=== PATIENT | female | born 1965 | race Caucasian/White ===

== ENCOUNTER 2017-11-30 20:33 | Observation (INO) ==
[2017-12-01] MEDS ORDERED: Sod Chloride 0.9% Inj 1,000 ML IV.SIG ONE ×2 (00:48→00:49)
[2017-12-01] MEDS ORDERED: Morphine Inj 4 MG/ML Vial IV.PUSH ONE (00:48)
--- NOTE | 2017-12-01 00:54 | ED ---
HPI General Chief Complaint: Abdominal Pain Stated Complaint: side pain Time Seen by Provider: 12/01/17 00:45 History of Present Illness HPI narrative: 52-year-old female presents to the emergency department for complaint of right upper quadrant and right flank pain for the past 2 days with dysuria fever chills nausea vomiting and poor oral intake. Patient is approximately one-month status post laparoscopic appendectomy. Patient has history of hypertension. No hemoptysis no hematemesis no melena no hematochezia no diarrhea. No vaginal discharge. Patient is unable to identify exacerbating or alleviating factors patient rates discomfort as moderate to severe with palpation and percussion. After IV fluids and Reglan patient continues to complain of severe nausea unable to tolerate oral hydration oral medication requiring IV potassium replacement call placed to medicine service for observation and also treated for UTI dehydration and intractable nausea/vomiting with hypokalemia discussed with Dr Malave Related Data Home Medications Medication Instructions Recorded Confirmed clonidine HCl 0.2 mg PO BID 11/30/17 11/30/17 gabapentin 600 mg PO TID 11/30/17 11/30/17 lisinopril 40 mg PO DAILY 11/30/17 11/30/17 metoprolol tartrate 20 mg PO BID 11/30/17 11/30/17 sertraline [Zoloft] 50 mg PO DAILY 11/30/17 11/30/17 Allergies Allergy/AdvReac Type Severity Reaction Status Date / Time Penicillins Allergy Severe Edema Verified 11/30/17 21:09 Review of Systems Except as stated in HPI: all other systems reviewed are negative PMFSH Medical History Medical History Appendicitis (Acute) delivery delivered (Acute) HTN (hypertension) (Acute) MRSA (methicillin resistant Staphylococcus aureus) (Acute) Skin cancer (melanoma) (Acute) Surgical History Surgical History History of appendectomy (Acute) Social History Social History Substance History: No History of Abuse Second Hand Smoke Exposure: Yes Smoking Status: Current every day smoker Tobacco Type: Cigarettes How Often Do You Have a Drink Containing Alcohol: Monthly or less Recent Travel in [facility] within the Last 8 Weeks: No Recent Out of Country Travel within the Last 8 Weeks: No Exam Narrative Exam Narrative: GENERAL: Well-nourished, well-developed patient. SKIN: Focused skin assessment warm/dry. HEAD: Normocephalic. EYES: No scleral icterus. No injection or drainage. NECK: Supple, trachea midline. No JVD or lymphadenopathy. CARDIOVASCULAR: Regular rate and rhythm without murmurs, gallops, or rubs. RESPIRATORY: Breath sounds equal bilaterally. No accessory muscle use. GASTROINTESTINAL: Abdomen soft, non-tender, nondistended. MUSCULOSKELETAL: No cyanosis, or edema. BACK: Nontender without obvious deformity. Right-sided CVA tenderness. Course Initial Documented Vital Signs Temperature 98.6 F 11/30/17 21:06 Pulse Rate 126 H 11/30/17 21:06 Respiratory Rate 14 11/30/17 21:06 Blood Pressure 134/83 11/30/17 21:06 Pulse Oximetry 97 11/30/17 21:06 Last Documented Vital Signs Temperature 96.7 F L 12/01/17 16:00 Pulse Rate 66 12/01/17 16:00 Respiratory Rate 20 12/01/17 16:00 Blood Pressure 102/63 12/01/17 16:00 Pulse Oximetry 99 12/01/17 16:00 Medical Decision Making MDM Narrative Medical decision making narrative: 52-year-old female with flank pain and right upper quadrant pain for the past 2 days with associated nausea and vomiting no hematemesis no coffee-ground emesis and no diarrhea or change in bowel habit with subjective fever and chills presents with tachycardia and reproducible flank tenderness and complaint of dysuria concerning for pyelonephritis; IV access obtained specimens collected and sent for resulting patient given normal saline bolus along with morphine sulfate 2 mg IV and Reglan 10 mg IV will be treated for sepsis workup with blood cultures 2 and lactic acid patient will be reassessed and Differential Diagnosis Differential Diagnosis: Flank pain, right upper quadrant abdominal pain, pyelonephritis, UTI, renal colic, cholecystitis, pancreatitis, gastritis, colitis Lab Data Result diagrams: 12/01/17 01:15 12/01/17 01:15 Lab Results 12/01/17 12/01/17 12/01/17 Range/Units 01:15 01:15 01:15 WBC 9.8 (4.0-11.0) th/mm3 RBC 5.33 H (4.00-5.30) mil/mm3 Hgb 16.5 H (11.6-15.3) gm/dL Hct 47.2 H (35.0-46.0) % MCV 88.5 (80.0-100.0) fL MCH 30.9 (27.0-34.0) pg MCHC 34.9 (32.0-36.0) % RDW 14.0 (11.6-17.2) % Plt Count 428 (150-450) th/mm3 MPV 8.9 (7.0-11.0) fL Neut % (Auto) 54.9 (16.0-70.0) % Lymph % (Auto) 32.6 (9.0-44.0) % [place] % (Auto) 10.9 H (0.0-8.0) % Eos % (Auto) 1.1 (0.0-4.0) % Baso % (Auto) 0.5 (0.0-2.0) % Neut # (Auto) 5.4 (1.8-7.7) th/mm3 Lymph # (Auto) 3.2 (1.0-4.8) th/mm3 [place] # (Auto) 1.1 H (0.0-0.9) th/mm3 Eos # (Auto) 0.1 (0.0-0.4) th/mm3 Baso # (Auto) 0.0 (0.0-0.2) th/mm3 WBC Differential . Differential Comment Auto diff final Sodium 131 L (136-145) meq/L Potassium 2.8 L* (3.5-5.1) meq/L Chloride 90 L (98-107) meq/L Carbon Dioxide 27.2 (21.0-32.0) meq/L Anion Gap 14 (5-15) meq/L BUN 10 (7-18) mg/dL Creatinine 0.64 (0.50-1.00) mg/dL Estimated GFR Greater than 89 (>89) mL/min Random Glucose 137 H (74-106) mg/dL Lactic Acid 1.1 (0.4-2.0) mmol/L Calcium 10.4 H (8.5-10.1) mg/dL Total Bilirubin 1.0 (0.2-1.0) mg/dL AST 27 (15-37) U/L ALT 26 (10-53) U/L Alkaline Phosphatase 91 (45-117) U/L Total Protein 7.6 (6.4-8.2) g/dL Albumin 4.8 (3.4-5.0) g/dL Amylase (25-115) U/L Lipase 84 (73-393) U/L Urine Color (Yellw/Straw) Urine Clarity (Clear) Urine pH (5.0-8.5) Ur Specific [place] (1.002-1.035) Urine Protein (Neg-Trace) mg/dL Urine Glucose (UA) (Negative) mg/dL Urine Ketones (Negative) mg/dL Urine Occult Blood (Negative) Urine Nitrate (Negative) Urine Bilirubin (Negative) Urine Urobilinogen (Less than 2) mg/dL Ur Leukocyte Esterase (Negative) Urine RBC (0-3) /hpf Urine WBC (0-5) /hpf Ur Squamous Epith Cells (0-5) /hpf Urine Mucus (Occasional) /lpf Micro UA Comment Urine Culture Comments 12/01/17 12/01/17 Range/Units 04:30 12:41 WBC (4.0-11.0) th/mm3 RBC (4.00-5.30) mil/mm3 Hgb (11.6-15.3) gm/dL Hct (35.0-46.0) % MCV (80.0-100.0) fL MCH (27.0-34.0) pg MCHC (32.0-36.0) % RDW (11.6-17.2) % Plt Count (150-450) th/mm3 MPV (7.0-11.0) fL Neut % (Auto) (16.0-70.0) % Lymph % (Auto) (9.0-44.0) % [place] % (Auto) (0.0-8.0) % Eos % (Auto) (0.0-4.0) % Baso % (Auto) (0.0-2.0) % Neut # (Auto) (1.8-7.7) th/mm3 Lymph # (Auto) (1.0-4.8) th/mm3 [place] # (Auto) (0.0-0.9) th/mm3 Eos # (Auto) (0.0-0.4) th/mm3 Baso # (Auto) (0.0-0.2) th/mm3 WBC Differential Differential Comment Sodium (136-145) meq/L Potassium (3.5-5.1) meq/L Chloride (98-107) meq/L Carbon Dioxide (21.0-32.0) meq/L Anion Gap (5-15) meq/L BUN (7-18) mg/dL Creatinine (0.50-1.00) mg/dL Estimated GFR (>89) mL/min Random Glucose (74-106) mg/dL Lactic Acid (0.4-2.0) mmol/L Calcium (8.5-10.1) mg/dL Total Bilirubin (0.2-1.0) mg/dL AST (15-37) U/L ALT (10-53) U/L Alkaline Phosphatase (45-117) U/L Total Protein (6.4-8.2) g/dL Albumin (3.4-5.0) g/dL Amylase 43 (25-115) U/L Lipase 178 (73-393) U/L Urine Color Yellow (Yellw/Straw) Urine Clarity Clear (Clear) Urine pH 6.0 (5.0-8.5) Ur Specific [place] 1.030 (1.002-1.035) Urine Protein Negative (Neg-Trace) mg/dL Urine Glucose (UA) 50 (Negative) mg/dL Urine Ketones 20 (Negative) mg/dL Urine Occult Blood Small H (Negative) Urine Nitrate Negative (Negative) Urine Bilirubin Negative (Negative) Urine Urobilinogen Less than 2 (Less than 2) mg/dL Ur Leukocyte Esterase Negative (Negative) Urine RBC 1 (0-3) /hpf Urine WBC 3 (0-5) /hpf Ur Squamous Epith Cells 1 (0-5) /hpf Urine Mucus Few H (Occasional) /lpf Micro UA Comment Culture not ind Urine Culture Comments Culture not ind Imaging Data Radiologist's impression: ITS Impressions Bile Acid Absorption NM 12/01/17 00:00 CONCLUSION: 1. Negative examination. Chest X-Ray 12/01/17 00:48 CONCLUSION: 1. No acute cardiopulmonary disease. Abdomen/Pelvis CT 12/01/17 00:51 CONCLUSION: 1. No acute CT abnormality in the abdomen or pelvis. 2. Appendix is not directly visualized. However, there is no significant inflammatory change in the pericecal region. Discharge Plan Discharge Disposition Patient Disposition: 30 Still Patient Discharge Details Diagnosis: Hypokalemia, Vomiting, UTI (urinary tract infection), Dehydration fever Physicians Team ED Provider: Frances Laws Primary Care Provider: NON STAFF,PROVIDER Attending Provider: Camila Pagan Status ED Status: Left Department Discharge Information Discharge Date/Time: 12/01/17 16:07
--- NOTE | 2017-12-01 01:14 | XR ---
EXAM DATE: 12/01/2017 1:10 AM EDT AGE/SEX: 52 years / Female INDICATIONS: Fever. Flank Pain. CLINICAL DATA: This is the patient's initial encounter. Patient reports that signs and symptoms have been present for 2 days and indicates a pain score of 3/10. MEDICAL/SURGICAL HISTORY: None. None. COMPARISON: No prior exams available for comparison. FINDINGS: A single AP view of the chest demonstrates the lungs to be symmetrically aerated without evidence of mass, infiltrate or effusion. The cardiomediastinal contours are unremarkable. Osseous structures a re intact. CONCLUSION: 1. No acute cardiopulmonary disease. Electronically signed by: Aryan Hernandez MD 12/01/2017 1:13 AM EDT
[2017-12-01 01:45] LABS: Baso % (Auto) 0.5 % (0.0-2.0); Eos # (Auto) 0.1 th/mm3 (0.0-0.4); Eos % (Auto) 1.1 % (0.0-4.0); Hematocrit 47.2 % (35.0-46.0); Hemoglobin 16.5 gm/dL (11.6-15.3); Lymph # (Auto) 3.2 th/mm3 (1.0-4.8); Lymph % (Auto) 32.6 % (9.0-44.0); Mean Corpuscular HGB Conc 34.9 % (32.0-36.0); Mean Corpuscular Hemoglobin 30.9 pg (27.0-34.0); Mean Corpuscular Volume 88.5 fL (80.0-100.0); Mean Platelet Volume 8.9 fL (7.0-11.0); Mono # (Auto) 1.1 th/mm3 (0.0-0.9); Mono % (Auto) 10.9 % (0.0-8.0); Neut # (Auto) 5.4 th/mm3 (1.8-7.7); Neut % (Auto) 54.9 % (16.0-70.0); Platelet Count 428 th/mm3 (150-450); Red Blood Count 5.33 mil/mm3 (4.00-5.30); White Blood Count 9.8 th/mm3 (4.0-11.0)
[2017-12-01 02:15] LABS: Alanine Aminotransferase 26 U/L (10-53); Albumin 4.8 g/dL (3.4-5.0); Alkaline Phosphatase 91 U/L (45-117); Anion Gap 14 meq/L (5-15); Aspartate Aminotransferase 27 U/L (15-37); Blood Urea Nitrogen 10 mg/dL (7-18); Calcium 10.4 mg/dL (8.5-10.1); Carbon Dioxide 27.2 meq/L (21.0-32.0); Chloride 90 meq/L (98-107); Glomerular Filtration Rate Greater Than 89 mL/min (>89); Glucose,Random 137 mg/dL (74-106); Lipase 84 U/L (73-393); Sodium 131 meq/L (136-145); Total Protein 7.6 g/dL (6.4-8.2)
[2017-12-01 02:18] LABS: Potassium 2.8 meq/L (3.5-5.1)
--- NOTE | 2017-12-01 04:19 | CT ---
EXAM DATE: 12/01/2017 3:10 AM EDT AGE/SEX: 52 years / Female INDICATIONS: Right upper quadrant. CLINICAL DATA: This is the patient's initial encounter. Patient reports that signs and symptoms have been present for 3 days and indicates a pain score of 8/10. MEDICAL/SURGICAL HISTORY: None. None. ORAL CONTRAST: No oral contrast ingested. RADIATION DOSE: 6.76 CTDI (mGy) COMPARISON: No prior exams available for comparison. TECHNIQUE: Multiple contiguous axial images were obtained through the abdomen and pelvis following b olus infusion of 75 ml Omnipaque 350 (iohexol) nonionic water-soluble contrast as a single exam dos e. No oral contrast ingested. Using automated exposure control and adjustment of the mA and/or kV ac cording to patient size, radiation dose was kept as low as reasonably achievable to obtain optimal di agnostic quality images. DICOM format image data is available electronically for review and comparis on. FINDINGS: LOWER LUNGS: The visualized lower lungs are clear. LIVER: The liver has a homogeneous density without space-occupying lesion. There is no dilation of t he biliary tree. Gallbladder is mildly distended but otherwise unremarkable by CT. SPLEEN: Homogeneous density without enlargement. PANCREAS: Unremarkable without mass or calcification. KIDNEYS: Kidneys demonstrate symmetrical enhancement and are symmetrical in size without evidence fo r radiopaque renal calculi or hydronephrosis. ADRENAL GLANDS: Unremarkable. AORTA: Belinda-aneurysmal. BOWEL/MESENTERY: The bowel loops are grossly unremarkable. The cecum and sigmoid colon have a rena l configuration. Appendix is not directly visualized. No inflammatory change in the right lower quadr ant. ABDOMINAL WALL: Intact. RETROPERITONEUM: No evidence of adenopathy in the retrocrural, para-aortic, or deep pelvic regions. BLADDER: Contours are smooth. REPRODUCTIVE: No abnormal masses or calcifications seen. BONY STRUCTURES: Unremarkable. CONCLUSION: 1. No acute CT abnormality in the abdomen or pelvis. 2. Appendix is not directly visualized. However, there is no significant inflammatory change in the pericecal region. Electronically signed by: Aryan Hernandez MD 12/01/2017 4:18 AM EDT
[2017-12-01] MEDS: Potassium Chlor 10 mEq Premix 10 MEQ/100 ML PIGGYBACK IV.SIG SCH ×3 (04:25→06:30)
[2017-12-01 04:57] LABS: Bilirubin,Urine Negative (Negative); Clarity,Urine Clear (Clear); Color,Urine Yellow (Yellw/Straw); Glucose,Urine (UA) 50 mg/dL (Negative); Leukocyte Esterase,Urine Negative (Negative); Mucus,Urine Few /lpf (Occasional); Nitrite,Urine Negative (Negative); Squamous Epithelial Cell,Urine 1 /hpf (0-5)
[2017-12-01] MEDS ORDERED: Bisacodyl 10 MG Supp RECTAL PRN (04:59)
[2017-12-01] MEDS ORDERED: Acetaminophen 325 MG Tablet PO PRN ×2 (04:59→08:25)
[2017-12-01] MEDS ORDERED: Temazepam 15 MG Capsule PO PRN (04:59)
[2017-12-01] MEDS ORDERED: Naloxone Inj 0.4 MG/ML Vial IV.PUSH PRN (08:25)
--- NOTE | 2017-12-01 08:34 | P.HPIM ---
History of Present Illness Primary Care Physician: PROVIDER NON STAFF Chief Complaint: abdominal pain History of Present Illness: This is a 52-year-old female who has a history of hypertension, recent appendicitis about 6 weeks ago status post appendectomy from outside hospital presenting to the hospital for intractable right upper quadrant pain, nausea and vomiting. Per patient, she stayed in the hospital for 3 days post appendectomy. Hospitalization was complicated by C. difficile which was treated with vancomycin for 14 days orally. She finished her antibiotics. She never had diarrhea since except for one episode of soft stools about 1 week ago which stopped spontaneously. However in the last 3 days, she has been having severe right upper quadrant abdominal pain, cramping, nonradiating, associated with severe nausea and vomiting, nonbilious, nonbloody. There is also note of dysuria for 2 days and suprapubic discomfort but no frequency or urgency. She also has a new cough for about 1 day productive with yellow sputum but no shortness of breath. There is subjective fever without chills. Patient denies any gallbladder pathology in the family. Inpatient Certification: I certify that the inpatient services were ordered in accordance with Medicare regulations governing the order. This includes certification that hospital inpatient services are reasonable and necessary and in the case of services not specified as inpatient-only under 42 CFR 419.22(n), that they are appropriately provided as inpatient services in accordance to with the 2-midnight benchmark under 43 CFR 412.3(e) Review of Systems All other pertinent systems were reviewed and are negative. PMFSH - History History Provided By: Patient - Medical History Medical History: Medical History (Last Updated 12/01/17 @ 08:31 by Camila Pagan MD) Appendicitis delivery delivered HTN (hypertension) MRSA (methicillin resistant Staphylococcus aureus) Skin cancer (melanoma) - Surgical History Surgical History: Surgical History (Last Updated 12/01/17 @ 08:31 by Camila Pagan MD) History of appendectomy - Tobacco History Second Hand Smoke Exposure: Yes Tobacco Use In Past 30 Days: Yes Smoking Status: Current every day smoker Tobacco Type: Cigarettes - Alcohol History How Often Do You Have a Drink Containing Alcohol: Monthly or less - Substance Use History Substance History: No History of Abuse - Travel History Recent Travel in the [place] Within the Last 8 Weeks: No Recent Travel Out of the Country Within the Last 8 Weeks: No - Immunization History Tetanus Immunization: <5 Years Hx Influenza Vaccine This Season: Yes Medications and Allergies Active Medications: Active Medications Acetaminophen (Tylenol) 650 mg PO Q4H PRN PRN Reason: Temp > 100.4/EDOUARD Last Admin: 12/01/17 06:29 Dose: 650 mg Al Hydroxide/Mg Hydroxide (Milk Of [place] Ga) 30 ml PO Q12H PRN PRN Reason: Mild Constipation Bisacodyl (Dulcolax Supp) 10 mg RECTAL DAILY PRN PRN Reason: SEVERE CONSITIPATION Clonidine HCl (Catapres) 0.2 mg PO BID [facility] Potassium Chloride/Sodium Chloride (Ns + Kcl 20 Meq Inj) 1,000 mls @ 125 mls/ hr IV.CONT .Q8H [facility] Last Admin: 12/01/17 08:19 Dose: 125 mls/hr Metoprolol Tartrate (Lopressor) 20 mg PO BID [facility] Non-Formulary Medication (Gabapentin [Gabapentin]) 600 mg PO TID [facility] Non-Formulary Medication (Lisinopril [Lisinopril]) 40 mg PO DAILY [facility] Prochlorperazine Edisylate (Compazine Inj) 5 mg IV.PUSH Q4H PRN PRN Reason: NAUSEA OR VOMITING Sennosides (Senokot) 17.2 mg PO Q12H PRN PRN Reason: Moderate Constipation Sertraline HCl (Zoloft) 50 mg PO DAILY [facility] Sodium Chloride (Ns Flush) 2 ml IV.FLUSH PRN PRN PRN Reason: FLUSH AFTER USING IV ACCESS Temazepam (Restoril) 15 mg PO HS PRN PRN Reason: INSOMNIA Allergies Allergy/AdvReac Type Severity Reaction Status Date / Time Penicillins Allergy Severe Edema Verified 11/30/17 21:09 Home Medications Medication Instructions Recorded Confirmed Type clonidine HCl 0.2 mg PO BID 11/30/17 11/30/17 History gabapentin 600 mg PO TID 11/30/17 11/30/17 History lisinopril 40 mg PO DAILY 11/30/17 11/30/17 History metoprolol tartrate 20 mg PO BID 11/30/17 11/30/17 History sertraline [Zoloft] 50 mg PO DAILY 11/30/17 11/30/17 History Exam Vital signs: Vital Signs 11/30/17 21:06 12/01/17 03:09 12/01/17 03:26 Temperature 98.6 F 98.7 F Pulse Rate 126 H 120 H Respiratory Rate 14 16 18 Blood Pressure 134/83 166/94 H Pulse Oximetry 97 98 12/01/17 04:54 Temperature Pulse Rate 115 H Respiratory Rate 16 Blood Pressure 171/97 H Pulse Oximetry 99 Intake & Output 11/30/17 12/01/17 12/01/17 18:59 06:59 18:59 Intake Total 200 / 200 Balance 200 / 200 Weight 70 kg Intake: IV 200 / 200 KCl 10 mEq Premix Inj 10 meq In 200 / 200 100 ml @ 100 mls/hr IV.SIG Q1H [facility] Rx#:[id number] Narrative: GENERAL: Not in acute distress, well-nourished. HEAD: Atraumatic. Normocephalic. No temporal or scalp tenderness. EYES: PERRL, full EOMs, no jaundice, nonicteric, pink conjunctivae without injection, dry oral mucosa. ENT: Nose without bleeding, purulent drainage. NECK: Trachea midline, no mass, no obvious thyromegaly. CARDIOVASCULAR: Regular rate and rhythm without murmurs, gallops, or rubs. RESPIRATORY: Clear to auscultation with normal respiratory effort. Breath sounds equal bilaterally. No use of accessory muscles of respiration. GASTROINTESTINAL: Abdomen soft, normal bowel sounds, positive for right upper quadrant tenderness with deep palpation in the area of the liver and gallbladder , no epigastric tenderness, negative for Rob sign. Mild tenderness on palpation of the right lower quadrant. Nondistended. No hepato-splenomegaly or palpable mass. No guarding. CIRO and exam deferred. MUSCULOSKELETAL: Extremities without clubbing, cyanosis, or edema. No calf tenderness. Distal pulses intact, 2+ bilaterally. INTEGUMENTARY: Warm and dry, no rash of generalized distribution. NEUROLOGICAL: Awake, alert, oriented 3. No obvious cranial nerve deficits. Moves all 4 extremities, muscle strength testing 5 over 5. Motor and sensory grossly within normal limits. .Supple neck, no meningeal signs. Grossly negative cerebellar examination. No focal neurologic deficits. Results - Labs CBC & Chem 7: 12/01/17 01:15 12/01/17 01:15 Labs: Short CBC 12/01/17 Range/Units 01:15 WBC 9.8 (4.0-11.0) th/mm3 Hgb 16.5 H (11.6-15.3) gm/dL Hct 47.2 H (35.0-46.0) % Plt Count 428 (150-450) th/mm3 BMP 12/01/17 01:15 Sodium 131 L Potassium 2.8 L* Chloride 90 L Carbon Dioxide 27.2 BUN 10 Creatinine 0.64 Calcium 10.4 H Liver Function 12/01/17 Range/Units 01:15 Total Bilirubin 1.0 (0.2-1.0) mg/dL AST 27 (15-37) U/L ALT 26 (10-53) U/L Alkaline Phosphatase 91 (45-117) U/L Albumin 4.8 (3.4-5.0) g/dL Urine 12/01/17 Range/Units 04:30 Urine Color Yellow (Yellw/Straw) Urine Clarity Clear (Clear) Urine pH 6.0 (5.0-8.5) Ur Specific [place] 1.030 (1.002-1.035) Urine Protein Negative (Neg-Trace) mg/dL Urine Glucose (UA) 50 (Negative) mg/dL - Imaging Impressions Chest X-Ray 12/01/17 00:48 CONCLUSION: 1. No acute cardiopulmonary disease. Abdomen/Pelvis CT 12/01/17 00:51 CONCLUSION: 1. No acute CT abnormality in the abdomen or pelvis. 2. Appendix is not directly visualized. However, there is no significant inflammatory change in the pericecal region. Caprini VTE Risk Assessment Caprini VTE Risk Assessment: Moderate/High Risk (score >= 2) Caprini Risk Assessment Model: Point Value = 1 Point Value = 2 Point Value = 3 Point Value = 5 Age 41-60 Minor surgery BMI > 25 kg/m2 Swollen legs Varicose veins or History of unexplained or recurrent spontaneous Oral contraceptives or hormone replacement Sepsis (< 1 month) Serious lung disease, including pneumonia (< 1 month) Abnormal pulmonary function Acute myocardial infarction Congestive heart failure (< 1 month) History of inflammatory bowel disease Medical patient at bed rest Age 61-74 Arthroscopic surgery Major open surgery (> 45 min) Laparoscopic surgery (> 45 min) Malignancy Confined to bed (> 72 hours) Immobilizing plaster cast Central venous access Age >= 75 History of VTE Family history of VTE Factor V Leiden Prothrombin [id number] Lupus anticoagulant Anticardiolipin antibodies Elevated serum homocysteine Heparin-induced thrombocytopenia Other congenital or acquired thrombophilia Stroke (< 1 month) Elective arthroplasty Hip, pelvis, or leg fracture Acute spinal cord injury (< 1 month) Prophylaxis Regimen: Total Risk Factor Score Risk Level Prophylaxis Regimen 0-1 Low Early ambulation 2 Moderate Order ONE of the following: *Sequential Compression Device (SCD) *Heparin 5000 units SQ BID 3-4 Higher Order ONE of the following medications: *Heparin 5000 units SQ TID *Enoxaparin/Lovenox 40 mg SQ daily (WT < 150 kg, CrCl > 30 mL/min) *Enoxaparin/Lovenox 30 mg SQ daily (WT < 150 kg, CrCl > 10-29 mL/min) *Enoxaparin/Lovenox 30 mg SQ BID (WT < 150 kg, CrCl > 30 mL/min) AND/OR *Sequential Compression Device (SCD) 5 or more Highest Order ONE of the following medications: *Heparin 5000 units SQ TID (Preferred with Epidurals) *Enoxaparin/Lovenox 40 mg SQ daily (WT < 150 kg, CrCl > 30 mL/min) *Enoxaparin/Lovenox 30 mg SQ daily (WT < 150 kg, CrCl > 10-29 mL/min) *Enoxaparin/Lovenox 30 mg SQ BID (WT < 150 kg, CrCl > 30 mL/min) AND *Sequential Compression Device (SCD) Assessment and Plan - Plan This is a 52-year-old female with history of hypertension and recent appendectomy for appendicitis presenting with right upper quadrant abdominal pain, nausea and vomiting Right upper quadrant abdominal pain-rule out cholestasis versus cholecystitis. CT scan of the abdomen showed a mildly distended gallbladder, pancreas and liver appear unremarkable including the kidneys. Urinalysis is unremarkable, no hematuria. LFTs unremarkable. Check lipase and amylase, check HIDA scan, pain control with intravenous morphine, n.p.o. for now, antiemetics. Dehydration-IVF, as evidenced by hypercalcemia and elevated hemoglobin. Recheck BMP tomorrow. Hyponatremia and hypokalemia-likely from dehydration, replaced, IVF with normal saline and potassium Recent history of C. difficile-caution with antibiotics. Hypertension-continue home medications including lisinopril, metoprolol and clonidine. DVT prophylaxis: Lovenox
[2017-12-01] MEDS: Metoprolol Tartrate 25 MG Tablet PO SCH ×3 (10:12→23:17)
[2017-12-01] MEDS: Gabapentin 300 MG Capsule PO SCH ×3 (10:13→17:22)
[2017-12-01] MEDS: Sertraline 50 MG Tablet PO SCH (10:13)
[2017-12-01] MEDS: Lisinopril 20 MG Tablet PO SCH (10:14)
[2017-12-01] MEDS: Enoxaparin Inj 40 MG/0.4 ML Syringe SQ SCH (10:14)
[2017-12-01 13:57] LABS: Amylase 43 U/L (25-115); Lipase 178 U/L (73-393)
[2017-12-01] MEDS ORDERED: Sincalide Inj 5 MCG Vial IV.PUSH ONE (14:52)
--- NOTE | 2017-12-01 15:36 | NM ---
EXAM DATE: 12/01/2017 3:28 PM EDT AGE/SEX: 52 years / Female INDICATIONS: Ruq Pain. CLINICAL DATA: This is the patient's initial encounter. Patient reports that signs and symptoms have been present for 1 day and indicates a pain score of 0/10. MEDICAL/SURGICAL HISTORY: Hypertension. Appendectomy. COMPARISON: [facility] [place], CT ABDOMEN & PELVIS W CONTRAST, 12/01/2017. . . DOSE: 4.1 mCi Tc-99m mebrofenin i.v. Medication: 1.4 mcg Cholecystokinin IV No symptomatic response Cholecystokinin was administered by slow infusion over 8 minutes beginning at 63 Minutes. minutes. TECHNIQUE: Following the intravenous administration of radiotracer, dynamic sequential images were pe rformed with continuous acquisition. Time-activity curves were generated. FINDINGS: Hepatic Kinetics: There is prompt uptake of radiotracer in the liver. No focal defects are seen. Ther e is normal rate of washout from the hepatic parenchyma. Biliary Clearance: Activity is first seen in the extrahepatic biliary system at 15 minutes. There is normal excretion into the small bowel. Gallbladder: Activity is first seen in the gallbladder at 15 minutes. Post-CCK: After CCK administration, there is emptying of the gallbladder with a 20% ejection fract ion. Common bile duct kinetics are normal and there is no evidence of biliary obstruction. No sympto matic response after cholecystokinin infusion. Biliary-Enteric Reflux: None observed. CONCLUSION: 1. Negative examination. Electronically signed by: Augustin Coates MD 12/01/2017 3:35 PM EDT
[2017-12-01] MEDS: Morphine Inj 4 MG/ML Vial IV.PUSH PRN (17:23)
[2017-12-02] MEDS: Morphine Inj 4 MG/ML Vial IV.PUSH PRN ×2 (04:02→08:36)
[2017-12-02 08:30] LABS: Baso # (Auto) 0.1 th/mm3 (0.0-0.2); Baso % (Auto) 1.2 % (0.0-2.0); Eos # (Auto) 0.2 th/mm3 (0.0-0.4); Eos % (Auto) 3.2 % (0.0-4.0); Hematocrit 36.1 % (35.0-46.0); Hemoglobin 12.8 gm/dL (11.6-15.3); Lymph # (Auto) 2.4 th/mm3 (1.0-4.8); Lymph % (Auto) 48.5 % (9.0-44.0); Mean Corpuscular HGB Conc 35.4 % (32.0-36.0); Mean Corpuscular Hemoglobin 31.5 pg (27.0-34.0); Mean Corpuscular Volume 88.9 fL (80.0-100.0); Mean Platelet Volume 8.8 fL (7.0-11.0); Mono # (Auto) 0.5 th/mm3 (0.0-0.9); Mono % (Auto) 10.1 % (0.0-8.0); Neut # (Auto) 1.8 th/mm3 (1.8-7.7); Platelet Count 235 th/mm3 (150-450); Red Blood Count 4.07 mil/mm3 (4.00-5.30); White Blood Count 4.9 th/mm3 (4.0-11.0)
[2017-12-02] MEDS: Gabapentin 300 MG Capsule PO SCH (08:36)
[2017-12-02] MEDS: Lisinopril 20 MG Tablet PO SCH (08:36)
[2017-12-02] MEDS: Enoxaparin Inj 40 MG/0.4 ML Syringe SQ SCH (08:36)
[2017-12-02] MEDS: Metoprolol Tartrate 25 MG Tablet PO SCH (08:36)
[2017-12-02] MEDS: Sertraline 50 MG Tablet PO SCH (08:36)
[2017-12-02 09:33] LABS: Anion Gap 7 meq/L (5-15); Blood Urea Nitrogen 8 mg/dL (7-18); Calcium 8.7 mg/dL (8.5-10.1); Chloride 110 meq/L (98-107); Glomerular Filtration Rate Greater Than 89 mL/min (>89); Glucose,Random 86 mg/dL (74-106); Potassium 3.1 meq/L (3.5-5.1); Sodium 144 meq/L (136-145)
--- NOTE | 2017-12-02 10:32 | P.PNIM ---
Subjective Interval history: Patient reports she is feeling great today. Abdominal pain pretty much resolved. No nausea or vomiting. Physical Exam Vital signs: Vital Signs 12/01/17 12:25 12/01/17 16:00 12/01/17 20:00 Temperature 96.7 F L 97.8 F Pulse Rate 75 66 73 Respiratory Rate 17 20 17 Blood Pressure 142/63 H 102/63 129/73 Pulse Oximetry 99 98 12/01/17 22:37 12/01/17 23:35 12/02/17 03:55 Temperature 99.9 F H 98.2 F Pulse Rate 75 71 77 Respiratory Rate 17 16 Blood Pressure 96/54 L 110/63 112/65 Pulse Oximetry 99 98 12/02/17 08:00 Temperature 97.7 F Pulse Rate 65 Respiratory Rate 16 Blood Pressure 129/83 Pulse Oximetry 100 Intake & Output 12/01/17 12/02/17 12/02/17 18:59 06:59 18:59 Intake Total 1000 / 1000 4100 / 4100 Balance 1000 / 1000 4100 / 4100 Intake: IV 1000 / 1000 4100 / 4100 NS + KCl 20 mEq Inj 1,000 ML @ 1000 / 1000 1999 / 1999 125 mls/hr IV.CONT .Q8H [facility] Rx# :[id number] Narrative: GENERAL: This is a well-nourished, well-developed patient, in no apparent distress. CARDIOVASCULAR: Normal rate and regular rhythm without murmurs, gallops, or rubs. RESPIRATORY: Good respiratory efforts. Breath sounds equal and clear to auscultation bilaterally. GASTROINTESTINAL: Abdomen soft, non-tender, non-distended. Normal active bowel sounds MUSCULOSKELETAL: Extremities without cyanosis, or edema. NEURO: Alert & Oriented x4 to person, place, time, situation. Moves all ext x4 PSYCH: Appropriate mood and affect. Results - Labs CBC & Chem 7: 12/02/17 07:54 12/02/17 07:54 Laboratory Results - last 24 hr 12/01/17 12/02/17 12/02/17 12:41 07:54 07:54 WBC 4.9 RBC 4.07 Hgb 12.8 D Hct 36.1 MCV 88.9 MCH 31.5 MCHC 35.4 RDW 14.0 Plt Count 235 D MPV 8.8 Neut % (Auto) 37.0 Lymph % (Auto) 48.5 H [place] % (Auto) 10.1 H Eos % (Auto) 3.2 Baso % (Auto) 1.2 Neut # (Auto) 1.8 Lymph # (Auto) 2.4 [place] # (Auto) 0.5 Eos # (Auto) 0.2 Baso # (Auto) 0.1 WBC Differential . Differential Comment Auto diff final Sodium 144 D Potassium 3.1 L Chloride 110 H D Carbon Dioxide 27.0 Anion Gap 7 BUN 8 Creatinine 0.41 L Estimated GFR Greater than 89 Random Glucose 86 Calcium 8.7 D Amylase 43 Lipase 178 - Imaging Impressions Bile Acid Absorption NM 12/01/17 00:00 CONCLUSION: 1. Negative examination. Assessment and Plan - Plan 52-year-old female with history of hypertension and recent appendectomy for appendicitis presenting with right upper quadrant abdominal pain, nausea and vomiting. The patient underwent extensive workup including CT of the abdomen which showed a mildly distended gallbladder. HIDA scan was negative. Patient also was dehydrated on presentation. She was treated with IV fluid and labs improved. Hypokalemia treated with supplemental potassium. This appeared to have been about of gastroenteritis. Patient deemed stable for discharge home. Hyponatremia and hypokalemia-likely from dehydration, replaced Hypertension-continue home medications including lisinopril, metoprolol and clonidine. Patient requested a refill for clonidine until she can get back home to [place]. This was provided to the patient. Discharge patient to home Condition on discharge: Improved Regular Diet as tolerated Ad Viola activity Rx written: Per med rec Follow-up with primary care physician
== END 2017-12-02 12:56 | disposition home or self-care (01) ==
LOC: NEDA 20:33 → NEPFCDU 20:33 → NEPC 20:33 → NEPFCDU 12-01 15:33
PROVIDERS: ADMIT Family Medicine; ATTEND Family Medicine
DX: R11.2 Nausea with vomiting, unspecified; R50.9 Fever, unspecified; E87.6 Hypokalemia; R30.0 Dysuria; R10.11 Right upper quadrant pain; E86.0 Dehydration; I10 Essential (primary) hypertension; F17.210 Nicotine dependence, cigarettes, uncomplicated; Z88.0 Allergy status to penicillin; N39.0 Urinary tract infection, site not specified; Z79.899 Other long term (current) drug therapy